=== PATIENT | female | born 1975 | race Caucasian/White ===

== ENCOUNTER 2020-05-12 15:14 | Emergency (ER) | payer OTHER ==
[2020-05-12 15:43] VITALS: TEMP 99.3; BMI 33.5
[2020-05-12] MEDS ORDERED: ALBUTEROL SO4 2.5/IPRATROPIUM 0.5 INH SOL 3 ML VIAL.NEB. NEB SCH (16:00)
[2020-05-12] MEDS ORDERED: predniSONE 20 MG TABLET (UD) PO ONE (16:08)
[2020-05-12] MEDS ORDERED: ACETAMINOPHEN 325 MG TABLET (FP) PO ONE (16:09)
[2020-05-12] MEDS: ALBUTEROL SO4 2.5/IPRATROPIUM 0.5 INH SOL 3 ML VIAL.NEB. NEB SCH ×4 (16:15→17:01)
[2020-05-12] MEDS ORDERED: predniSONE 20 MG TABLET (UD) ONE (16:20)
[2020-05-12] MEDS ORDERED: ACETAMINOPHEN 325 MG TABLET (FP) ONE (16:20)
[2020-05-12] MEDS ORDERED: ALBUTEROL SO4 2.5/IPRATROPIUM 0.5 INH SOL 3 ML VIAL.NEB. NEB ONE (16:37)
[2020-05-12 18:04] VITALS: BP 110/78
[2020-05-12 18:05] VITALS: PULSE 90
== END 2020-05-12 18:14 | disposition home or self-care (01) ==
LOC: JER 15:14
PROC: 3E0F7GC Introduction of Other Therapeutic Substance into Respiratory Tract, Via Natural or Artificial Opening (ICD-10-PCS; principal; 2020-05-12)
DX: J45.901 Unspecified asthma with (acute) exacerbation (principal); Z11.52 Encounter for screening for COVID-19
CPT/HCPCS: 71045-TC-FY; 87804; 99285-25; C9803; U0003